=== PATIENT | male | born 1940 | race Caucasian/White ===

== ENCOUNTER 2020-10-08 18:34 | Emergency (ER) | payer MEDICARE ==
[~2020-10-08] VITALS: Ht 177.8 cm; Wt 92.3 kg
[~2020-10-08 18:34] MED LIST: AMOX500C; BABY81CH; LIPI20TA; TYLENOL #3
[2020-10-08] MEDS ORDERED: METF750T36 (20:10)
[2020-10-08] MEDS ORDERED: ROPI0.5T3 (20:10)
[2020-10-08] MEDS ORDERED: SIMV40TA20 (20:10)
[2020-10-08 21:19] LABS: BASO % 0.4 % (0.0-1.0); EOS # 0.1 10^3/uL (0.0-0.5); HEMATOCRIT 37.2 % (42.0-52.0); HEMOGLOBIN 11.8 g/dl (13.5-17.5); LYMPH % 10.5 % (24.0-44.0); MEAN CORPUSCULAR HGB CONC 31.7 g/dl (32.0-36.5); MEAN CORPUSCULAR VOLUME 91.4 fl (80.0-96.0); MONO # 1.5 10^3/uL (0.0-0.8); MONO % 15.6 % (2.0-8.0); NEUTROPHILS # 6.7 10^3/uL (1.5-8.5); NEUTROPHILS % 72.1 % (36.0-66.0); PLATELET COUNT, AUTOMATED 234 10^3/uL (150-450); RED BLOOD COUNT 4.07 10^6/uL (4.30-6.10); WHITE BLOOD COUNT 9.3 10^3/uL (4.0-10.0)
[2020-10-08 21:49] LABS: CALCIUM LEVEL 8.9 MG/DL (8.8-10.2); CREATININE FOR GFR 1.69 MG/DL (0.70-1.30); GLOMERULAR FILTRATION RATE 41.9 (>42); POTASSIUM SERUM 4.3 MEQ/L (3.5-5.1)
[2020-10-08 22:04] LABS: RSV AMPLIFICATION NEGATIVE (NEGATIVE)
--- NOTE | 2020-10-08 22:40 | REPVR ---
PROCEDURE INFORMATION: Exam: XR Chest Exam date and time: 10/08/2020 9:23 PM Age: 79 years old Clinical indication: Fever TECHNIQUE: Imaging protocol: XR of the chest. Views: 2 views. COMPARISON: No relevant prior studies available. FINDINGS: Lungs: Calcified granuloma in the right mid lung. Pleural spaces: Unremarkable. No pleural effusion. No pneumothorax. Heart/Mediastinum: Unremarkable. No cardiomegaly. Bones/joints: Degenerative changes of the thoracic spine. IMPRESSION: No acute abnormality. Electronically signed by: Joe Valencia On 10/08/2020 22:39:11 PM
[2020-10-08] MEDS ORDERED: cefTRIAXone SOD 1 GM in D5W MINI-BAG PLUS 50 ML IV ONE (22:45)
[2020-10-08] MEDS ORDERED: NS 1,000 ML IV ONE (22:45)
[2020-10-08] MEDS ORDERED: CEFD1CAP8 PO (22:57)
[2020-10-09 00:26] VITALS: BP 155/78
== END 2020-10-09 00:29 | disposition home or self-care (01) ==
LOC: M ED 18:34
DX: N39.0 Urinary tract infection, site not specified (principal); E86.0 Dehydration; N17.8 Other acute kidney failure; R50.9 Fever, unspecified; Z79.84 Long term (current) use of oral hypoglycemic drugs
CPT/HCPCS: 71046; 80048; 81001; 85025; 87040; 87088; 87186; 87631; 96361; 96365; 99284; J0696

== ENCOUNTER → 2021-01-14 | Outpatient (REF) | payer MEDICARE ==
[~2021-01-14] MED LIST changes: +CEFD1CAP8 PO; +METF750T36; +ROPI0.5T3; +SIMV40TA20
[2021-01-14 19:40] LABS: BACTERIA, URINE AUTO 1+ (NEGATIVE); MUCUS, URINE SMALL (NEGATIVE); RBC, URINE AUTO 2 /HPF (0-3); SQUAMOUS EPITHELIAL CELL UR AU 0 /HPF (0-6); WBC, URINE AUTO 31 /HPF (0-3)
== END ==
LOC: M LAB REF 16:37
PROVIDERS: ATTEND Physician Assistant Medical
DX: N39.0 Urinary tract infection, site not specified (principal)

== ENCOUNTER 2022-04-01 16:58 | Emergency (ER) | payer MEDICARE ==
[~2022-04-01] VITALS: Ht 177.8 cm; Wt 94.4 kg
[~2022-04-01 16:58] MED LIST changes: +BACT800T5 PO; -CEFD1CAP8 PO; +CEFD300C41 PO
[2022-04-01 17:00] VITALS: BP 191/86
[2022-04-01] MEDS ORDERED: ASPI81CH33 PO (17:43)
== END 2022-04-01 17:30 | disposition left against medical advice (07) ==
LOC: M ED 16:58
DX: Z53.21 Procedure and treatment not carried out due to patient leaving prior to being seen by health care provider (principal)

== ENCOUNTER → 2023-04-21 | Outpatient (CLI) | payer MEDICARE ==
[~2023-04-21] MED LIST changes: +ASPI81CH33 PO; +CEFD1CAP9 PO; -CEFD300C41 PO; -ROPI0.5T3; +ROPI0.5T33
== END ==
LOC: M WUC 09:47
PROVIDERS: ATTEND Registered Nurse
DX: M25.571 Pain in right ankle and joints of right foot (principal)

== ENCOUNTER → 2024-02-08 | Outpatient (REF) | payer MEDICARE ==
[2024-02-08 19:13] LABS: URIC ACID 6.6 MG/DL (3.7-9.2)
[2024-02-08 19:16] LABS: PHOSPHORUS LEVEL 3.4 MG/DL (2.4-5.1)
[2024-02-08 19:18] LABS: PTH INTACT 50.3 PG/ML (18.5-88.0)
== END ==
LOC: M LAB REF 16:45
PROVIDERS: ATTEND Internal Medicine
DX: N18.32 Chronic kidney disease, stage 3b (principal); M10.9 Gout, unspecified